=== PATIENT | female | born 1955 | race Caucasian/White ===

== ENCOUNTER → 2023-05-23 | Outpatient (CLI) | payer MEDICARE ==
[~2023-05-23] MED LIST: CALCIUM + D 6001 TA1 PO; CALCIUM 600MG+D1 TAB PO; EVISTA 60MG60 MG/TAB PO; LEVOXYL0.125 MG PO; MAGNESIUM250 MG PO; MOTRIN 200200 MG/TAB PO; MULTIVITAMIN FO1 CAP PO; NORCO 325 MG-51 TAB PO; NORCO 325 MG-7.1 TAB PO; OS-CAL 500 + D1 TAB PO; PREMARIN .3MG0.3 MG PO; SYNTHROID0.112 MG/T PO; TYLENOL 500MG500 MG PO; TYLENOL EXTRA500 M1 PO; ULTRAM 50MG TAB50 MG PO; VITAMINC1000TA
[2023-05-23 14:38] LABS: ALBUMIN 3.9 gm/dL (3.4-4.8); BILIRUBIN,TOTAL 0.4 mg/dL (0.2-1.2); CALCIUM 9.4 mg/dL (8.4-10.2); CHOLESTEROL RISK RATIO 2.4; CREATININE, serum 0.93 mg/dL (0.57-1.11); POTASSIUM 4.9 mmol/L (3.5-4.5); TOTAL PROTEIN 7.2 gm/dL (6.2-8.1)
== END ==
LOC: COL.LAB 13:35
PROVIDERS: Internal Medicine
DX: E78.2 Mixed hyperlipidemia (principal)

== ENCOUNTER → 2023-06-26 | Outpatient (RCR) | payer MEDICARE | END | disposition home or self-care (01) | LOC: PT.GENESIS | DX: M79.604 Pain in right leg (principal) ==

== ENCOUNTER 2023-07-16 10:00 | Outpatient (RCR) | payer MEDICARE | END 2023-07-25 | disposition home or self-care (01) | LOC: PT.GENESIS | DX: M79.604 Pain in right leg (principal) ==